=== PATIENT | female | born 1945 | race Two or more races ===

== ENCOUNTER 2018-08-31 20:52 | Emergency (ER) | payer MEDICARE, OTHER ==
[~2018-08-31] VITALS: Ht 144.8 cm; Wt 90.7 kg
[2018-08-31 20:58] VITALS: BP 157/70
[2018-08-31] MEDS ORDERED: HYDR-3164 PO (21:25)
--- NOTE | 2018-08-31 21:28 | PHYS DOC ---
Past Medical History Past Medical History: Diabetes-Type II, High Cholesterol, Hypertension Additional Past Medical Histor: Pt reports she thinks she was told she has had a TIA in the past. (ANDREW LONGORIA APRN) Past Surgical History: , Tubal ligation Additional Past Surgical Histo: Left shoulder surgery. Bilateral knee scope. (ANDREW LONGORIA APRN) Alcohol Use: Rarely Drug Use: None (ANDREW LONGORIA APRN) Adult General Chief Complaint Chief Complaint: [facility] HPI Patient is a 72 year old female] who presents with right shoulder pain. States it has progressively gotten worse over the past few days. Reports she had been h elping a family member move over the past few days and has been lifting boxes and heavy items. Reports the pain did seem to get a little worse over the past day today. States it feels just like her left shoulder when she had a rotator cuff tear on that side. States she has problems lifting her arm anteriorly and laterally. states increase in pain. Has tried tylenol but it is not helping at all. Denies paresthesias to arm, denies falling on arm, denies trauma to arm. (ANDREW LONGORIA APRN) Review of Systems Review of Systems Constitutional: Denies fever or chills [] Eyes: Denies change in visual acuity, redness, or eye pain [] HENT: Denies nasal congestion or sore throat [] Respiratory: Denies cough or shortness of breath [] Cardiovascular: No additional information not addressed in HPI [] GI: Denies abdominal pain, nausea, vomiting, bloody stools or diarrhea [] : Denies dysuria or hematuria [] Musculoskeletal: Denies back pain, reports right shoulder pain[] Integument: Denies rash or skin lesions [] Neurologic: Denies headache, focal weakness or sensory changes [] Endocrine: Denies polyuria or polydipsia [] All other systems were reviewed and found to be within normal limits, except as documented in this note. (ANDREW LONGORIA APRN) Current Medications Current Medications Current Medications Medications (Trade) Dose Ordered Sig/Anselmo Start Time Stop Time Status Last Admin Dose Admin Acetaminophen/ Hydrocodone Bitart (Lortab 5/325) 1 tab 1X ONCE 08/31/18 21:45 08/31/18 21:46 DC 08/31/18 21:45 1 TAB (SUSANNE WARD MD) Allergies Allergies Allergies Coded Allergies Type Severity Reaction Last Updated Verified No Known Drug Allergies 08/19/15 No (SUSANNE WARD MD) Physical Exam Physical Exam Constitutional: Well developed, well nourished, no acute distress, non-toxic appearance. [] HENT: Normocephalic, atraumatic, bilateral external ears normal, oropharynx moist, no oral exudates, nose normal. [] Eyes: PERRLA, EOMI, conjunctiva normal, no discharge. [] Neck: Normal range of motion, no tenderness, supple, no stridor. [] Cardiovascular:Heart rate regular rhythm, no murmur [] Lungs & Thorax: Bilateral breath sounds clear to auscultation [] Abdomen: Bowel sounds normal, soft, no tenderness, no masses, no pulsatile masses. [] Skin: Warm, dry, no erythema, no rash. [] Back: No tenderness, no CVA tenderness. [] Extremities: No tenderness, no cyanosis, no clubbing, ROM decreased, no edema. Able to raise arm approx 90 degrees with assistance, unassisted with severe increase in pain, Able to raise arm actively laterally to 90 degrees, passively slightly higher. Increased discomfort anteriorly to shoulder on movement forward of arm. Circulation intact. no deformity palpated. no point tenderness while not moving arm. [] Neurologic: Alert and oriented X 3, normal motor function, normal sensory function, no focal deficits noted. [] Psychologic: Affect normal, judgement normal, mood normal. [] (ANDREW LONGORIA APRN) Current Patient Data Vital Signs Vital Signs Date Time Temp Pulse Resp B/P (MAP) Pulse Ox O2 Delivery O2 Flow Rate FiO2 08/31/18 21:45 18 96 Room Air 08/31/18 20:58 97.5 74 157/70 (99) 97.5 (SUSANNE WARD MD) EKG EKG [] (ANDREW LONGORIA APRN) Radiology/Procedures Radiology/Procedures [] (ANDREW LONGORIA APRN) Course & Med Decision Making Course & Med Decision Making Pertinent Labs and Imaging studies reviewed. (See chart for details) [Discussed findings, discussed X ray with patient, patient reporting she thinks it's her rotator cuff again. Discussed use of sling Discussed use of pain medications Discussed importance of follow up with Ortho] (ANDREW LONGORIA APRN) Course & Med Decision Making Staff Physician Addendum: I was working in the ER during the course of this patient's visit. I was available for consultation as needed, but I was not directly involved in the care of this patient. (SUSANNE WARD MD) Dragon Disclaimer Dragon Disclaimer This electronic medical record was generated, in whole or in part, using a voice recognition dictation system. (ANDREW LONGORIA APRN) Departure Departure Impression: Primary Impression: Shoulder pain, right Additional Impression: Right shoulder strain Disposition: HOME, SELF-CARE Referrals: CELSA AVENDANO MD (PCP) CATRACHO SALINAS MD Patient Instructions: Rotator Cuff Injury, Shoulder Pain, [id number] Additional Instructions: As we discussed, follow up with your orthopedic surgeon, perhaps whoever did your left shoulder Keep your arm in a sling when you are up and moving around for the next week. Througout the day, take your arm out and exercise it some, but do not over-do it Stop lifting heavy boxes and helping your family move. Let a younger family member do it. Scripts Hydrocodone/Apap 5-325 (NORCO 5-325 TABLET) 1 Each Tablet 1 TAB PO PRN Q6HRS PRN for PAIN for 3 Days, #12 TAB 0 Refills Prov: ANDREW LONGORIA APRN 08/31/18 Problem Qualifiers Primary Impression: Shoulder pain, right Chronicity: acute Qualified Codes: M25.511 - Pain in right shoulder Additional Impression: Right shoulder strain Encounter type: initial encounter Qualified Codes: S46.911A - Strain of unspecified muscle, fascia and tendon at shoulder and upper arm level, right arm, initial encounter ANDREW LONGORIA APRN Aug 31, 2018 21:28 SUSANNE WARD MD Sep 06, 2018 20:30
[2018-08-31] MEDS ORDERED: HYDROcodone/APAP 5/325MG 1 TAB TABLET PO ONE (21:45)
== END 2018-08-31 21:48 | disposition home or self-care (01) ==
LOC: ER 20:52
DX: S46.911A Strain of unspecified muscle, fascia and tendon at shoulder and upper arm level, right arm, initial encounter (principal); E11.9 Type 2 diabetes mellitus without complications; I10 Essential (primary) hypertension; E78.00 Pure hypercholesterolemia, unspecified; Z86.73 Personal history of transient ischemic attack (TIA), and cerebral infarction without residual deficits; X50.9XXA Other and unspecified overexertion or strenuous movements or postures, initial encounter; Y93.89 Activity, other specified; Y92.89 Other specified places as the place of occurrence of the external cause; Y99.8 Other external cause status
CPT/HCPCS: 99283

== ENCOUNTER 2019-11-24 15:23 | Inpatient (IN) | payer MEDICARE, OTHER ==
[~2019-11-24] VITALS: Ht 144.8 cm; Wt 90.0 kg
[~2019-11-24 15:23] MED LIST: HYDR-3164 PO
--- NOTE | 2019-11-24 16:08 | PHYS DOC ---
Past Medical History Past Medical History: Diabetes-Type II, High Cholesterol, Hypertension Additional Past Medical Histor: Pt reports she thinks she was told she has had a TIA in the past. (ROMINA SENA APRN) Past Surgical History: , Tubal ligation Additional Past Surgical Histo: Left shoulder surgery. Bilateral knee scope. (ROMINA SENA APRN) Smoking Status: Never Smoker Alcohol Use: Rarely Drug Use: None (ROMINA SENA APRN) General Adult EDM: Chief Complaint: LOWER EXT PAIN HPI: HPI: Patient is a 74 year old female who presents with yesterday began having dorsal right foot pain that was sharp and aching and continuous throughout the day and all night the pain worsened to the whole foot and up the leg to the knee. Upon examination patient is tender to the calf and the whole foot but there is no swelling. Skin is pink warm and dry. Pedal pulses present. Cap refills less than 2 seconds. Patient does have diabetes but states that she does not have any neuropathy denies numbness and tingling anywhere. She states that the pain worsens when she puts pressure on the extremity or with movement. She states she has not taken any pain medicine. Patient's other history is hypertension, high cholesterol, , tubal ligation. She rates her pain a 10 out of 10. (ROMINA SENA APRN) Review of Systems: Review of Systems: Constitutional: Denies fever or chills. [] Eyes: Denies change in visual acuity. [] HENT: Denies nasal congestion or sore throat. [] Respiratory: Denies cough. shortness of breath due to pain and holding her breath due to pain. [] Cardiovascular: Denies chest pain. Left lower leg 1+ edema. [] GI: Denies abdominal pain, nausea, vomiting, bloody stools or diarrhea. [] : Denies dysuria. [] Musculoskeletal: Denies back pain. Right lower extremity joint pain. Left lower extremity does hurt also but not as bad as right. [] Integument: Denies rash. [] Neurologic: Denies headache, focal weakness or sensory changes. [] Endocrine: Denies polyuria or polydipsia. [] Lymphatic: Denies swollen glands. [] Psychiatric: Denies depression or anxiety. [] (ROMINA SNEA APRN) Heart Score: Risk Factors: Risk Factors: DM, Current or recent (<one month) smoker, HTN, HLP, family history of CAD, obesity. Risk Scores: Score 0 - 3: 2.5% MACE over next 6 weeks - Discharge Home Score 4 - 6: 20.3% MACE over next 6 weeks - Admit for Clinical Observation Score 7 - 10: 72.7% MACE over next 6 weeks - Early Invasive Strategies (ROMINA SENA APRN) Allergies: Allergies: Allergies Coded Allergies Type Severity Reaction Last Updated Verified No Known Drug Allergies 08/19/15 No (ROMINA SENA APRN) Physical Exam: PE: Constitutional: Well developed, well nourished, no acute distress, non-toxic appearance. [] HENT: Normocephalic, atraumatic, bilateral external ears normal, oropharynx moist, no oral exudates, nose normal. [] Eyes: PERRLA, EOMI, conjunctiva normal, no discharge. [] Neck: Normal range of motion, no tenderness, supple, no stridor. [] Cardiovascular:Heart rate regular rhythm, no murmur [] Lungs & Thorax: Bilateral breath sounds clear to auscultation [] Abdomen: Bowel sounds normal, soft, no tenderness, no masses, no pulsatile masses. [] Skin: Warm, dry, no erythema, no rash. [] Back: No tenderness, no CVA tenderness. [] Extremities: Right lower extremity from calf down through foot and left foot tenderness, no cyanosis, no clubbing, ROM intact, left lower extremity 1+ edema. [] Neurologic: Alert and oriented X 3, normal motor function, normal sensory function, no focal deficits noted. [] Psychologic: Affect normal, judgement normal, mood normal. [] (ROMINA SENA APRN) EKG: EKG: [] (ROMINA SENA APRN) Radiology/Procedures: Radiology/Procedures: [] Impression: [facility] [address] [place] [address] IMAGING REPORT Signed PATIENT: CHRIS BLACKWELL ACCOUNT: [id number] : 1945 LOCATION: ER AGE: 74 SEX: F EXAM STATUS: REG ER ORD. PHYSICIAN: ROMINA SENA APRN REASON: pain PROCEDURE: VENOUS LOWER EXT BILATERAL Exam: Bilateral lower extremity venous duplex study INDICATION: Leg swelling TECHNIQUE: Using a combination of real-time ultrasound imaging and color-flow and pulse Doppler imaging techniques along with graded compression and augmentation, duplex evaluation of the deep venous systems of bilateral lower extremity was performed. Multiple images were obtained. Findings: There is no sonographic evidence for deep venous thrombosis involving the visualized deep venous structures of the bilateral lower extremity. IMPRESSION: No acute DVT in the bilateral lower extremities. Electronically signed by: Keeley Rdz MD (11/24/2019 5:14 PM) [id number] DICTATED and SIGNED BY: KEELEY RDZ MD DATE: 11/24/19 1714 [facility] [address] [place], [place] [id number] IMAGING REPORT Signed PATIENT: CHRIS BLACKWELL ACCOUNT: [id number] : 1945 LOCATION: ER AGE: 74 SEX: F EXAM STATUS: PRE ER ORD. PHYSICIAN: ROMINA SENA APRN REASON: Swelling and pain PROCEDURE: FOOT RIGHT 3V FOOT RIGHT 3V 11/24/2019 3:58 PM INDICATION: Swelling and pain COMPARISON: None available. TECHNIQUE: 3 views the right foot are provided. FINDINGS/ IMPRESSION: There is no acute fracture or dislocation. Joint spaces are maintained. Bone mineralization is within normal limits. Regional soft tissues are within normal limits. There is no soft tissue gas or osseous erosion. No radiopaque foreign body. Plantar calcaneal enthesophyte noted. Electronically signed by: Stevie Cantrell MD (11/24/2019 4:23 PM) [facility] DICTATED and SIGNED BY: STEVIE CANTRELL MD DATE: 11/24/19 1623 [facility] [address] [facility] [place] [id number] IMAGING REPORT Signed PATIENT: CHRIS BLACKWELL ACCOUNT: [id number] : 1945 LOCATION: [address] [place] [address] AGE: 74 SEX: F EXAM STATUS: ADM IN ORD. PHYSICIAN: ROMINA SENA APRN REASON: pain PROCEDURE: DUPLEX LOWER EXTREMITY BILAT Bilateral lower extremity arterial Doppler: Reason for examination: Right leg pain for 2 days. The lower extremity arterial systems were evaluated from the common femoral arteries distally to the dorsalis pedis arteries with grayscale imaging, color-flow imaging and spectral analysis. There is some mild plaque without evidence of a significant stenosis seen in the lower extremities bilaterally. There are normal triphasic waveforms throughout the right lower extremity and from the common femoral artery to the posterior tibial artery proximally in the left lower extremity with biphasic wave in the distal left lower extremity. Flow velocities are normal except for some elevation of flow velocity at the right dorsalis pedis artery which may reflect a focal stenosis. Flow velocities are as follows (in centimeters per second): Right Left Common femoral artery 167.2 177.7 The femoral artery 72.3 101 Superficial femoral artery proximal 174.8 160.9 Superficial femoral artery mid 182.5 124.1 Superficial femoral artery distally 120.3 126.4 Popliteal artery 155.5 100 Posterior tibial artery proximal 109.2 76.8 Posterior tibial artery distally 104.8 77.3 Peroneal artery 66.5 43 Anterior tibial artery 37.9 68.4 Dorsalis pedis artery 165.8 57.8 IMPRESSION: Triphasic waveforms throughout the right lower extremity with elevation of the flow velocities in the right dorsalis pedis artery which may reflect a focal stenosis. Triphasic waveform from the left common femoral artery to the posterior tibial artery proximally but biphasic waveform distally but no site of a hemodynamically significant stenosis. Electronically signed by: Mehdi Silverman MD (11/24/2019 7:38 PM) [facility] DICTATED and SIGNED BY: MEHDI SILVERMAN MD DATE: 11/24/191937 (ROMINA SENA APRN) Course & Med Decision Making: Course & Med Decision Making Pertinent Labs and Imaging studies reviewed. (See chart for details) See HPI. Patient unable to ambulate because she cannot put pressure on the extremity. Speaks in full clear sentences. Skin pink warm and dry. Patient does seem to have more swelling in the left lower leg compared to the right lower leg. When I touch the left foot she also jumped and stated that that side hurt also but not as much as the right foot does. Pedal pulse again present. Skin again pink warm and dry cap refill less than 2 seconds. Because of this I have ordered bilateral lower leg ultrasounds of those extremities. Patient denies chest pain, headache, dizziness, focal weakness, numbness or tingling, abdominal pain, nausea, vomiting, diarrhea, fever. Patient states at times she will feel short of breath but is because of the pain and she is holding her breath. [] (ROMINA SENA APRN) Dragon Disclaimer: Dragon Disclaimer: This electronic medical record was generated, in whole or in part, using a voice recognition dictation system. (ROMINA SENA APRN) Departure Departure Impression: Primary Impression: Unable to ambulate Additional Impression: Intractable pain Disposition: ADMITTED INPATIENT Admitting Physician: Celsa Garvey (ROMINA SENA APRN) Condition: STABLE Referrals: CELSA GARVEY MD (PCP) Justicifation of Admission Dx: Justifications for Admission: Justification of Admission Dx: Yes Comments: intractable leg pain (ORMINA SENA APRN) Attending Signature Attending Signature I have reviewed the PA/ORTHOPEDIC DENTIST's note and plan of care. I was available for consultation as needed during the patient's visit in the emergency department. I agree with the clinical impression, plan, and disposition. (POLLY SAMUELS DO) ROMINA SENA APRN Nov 24, 2019 16:08 POLLY SAMUELS DO Nov 25, 2019 07:08
[2019-11-24] MEDS ORDERED: fentaNYL PF VIAL 100 MCG/2 ML VIAL IVP ONE (16:15)
[2019-11-24 16:24] LABS: BASO # 0.1 x10^3/uL (0.0-0.2); BASO % 1 % (0-3); EOS # 0.1 x10^3/uL (0.0-0.7); EOS % 1 % (0-3); HEMOGLOBIN 12.4 g/dL (12.0-15.5); LYMPH % 12 % (24-48); MEAN CORPUSCULAR HEMOGLOBIN 32 pg (25-35); MEAN CORPUSCULAR HGB CONC 34 g/dL (31-37); MEAN CORPUSCULAR VOLUME 95 fL (79-100); MONO # 0.7 x10^3/uL (0.0-1.1); MONO % 9 % (0-9); NEUT % 76 % (31-73); PLATELET COUNT 208 x10^3/uL (140-400); RED BLOOD COUNT 3.91 x10^6/uL (3.50-5.40); RED CELL DISTRIBUTION WIDTH 13.8 % (11.5-14.5); WHITE BLOOD COUNT 7.9 x10^3/uL (4.0-11.0)
--- NOTE | 2019-11-24 16:26 | RAD ---
FOOT RIGHT 3V 11/24/2019 3:58 PM INDICATION: Swelling and pain COMPARISON: None available. TECHNIQUE: 3 views the right foot are provided. FINDINGS/ IMPRESSION: There is no acute fracture or dislocation. Joint spaces are maintained. Bone mineralization is within normal limits. Regional soft tissues are within normal limits. There is no soft tissue gas or osseous erosion. No radiopaque foreign body. Plantar calcaneal enthesophyte noted. Electronically signed by: Soni Gilmore MD (11/24/2019 4:23 PM) CHEY
[2019-11-24 16:34] LABS: PROTHROMBIN TIME PATIENT 13.7 SEC (11.7-14.0)
[2019-11-24 16:36] LABS: CALCIUM 8.4 mg/dL (8.5-10.1); CREATININE 0.8 mg/dL (0.6-1.0); GFR 70.3; POTASSIUM 3.7 mmol/L (3.5-5.1)
[2019-11-24 16:48] LABS: ALBUMIN 3.5 g/dL (3.4-5.0); C-REACTIVE PROTEIN 5.6 mg/L (0-3.3); TOTAL BILIRUBIN 0.5 mg/dL (0.2-1.0); URIC ACID 4.2 mg/dL (2.6-6.0)
--- NOTE | 2019-11-24 17:18 | RAD ---
Exam: Bilateral lower extremity venous duplex study INDICATION: Leg swelling TECHNIQUE: Using a combination of real-time ultrasound imaging and color-flow and pulse Doppler imaging techniques along with graded compression and augmentation, duplex evaluation of the deep venous systems of bilateral lower extremity was performed. Multiple images were obtained. Findings: There is no sonographic evidence for deep venous thrombosis involving the visualized deep venous structures of the bilateral lower extremity. IMPRESSION: No acute DVT in the bilateral lower extremities. Electronically signed by: Keeley Landa MD (11/24/2019 5:14 PM) [id number]
[2019-11-24] MEDS ORDERED: ONDANSETRON PF 4 MG/2 ML VIAL. IV PRN (18:45)
[2019-11-24] MEDS: fentaNYL PF VIAL 100 MCG/2 ML VIAL IV PRN ×3 (18:52→23:23)
--- NOTE | 2019-11-24 19:41 | RAD ---
Bilateral lower extremity arterial Doppler: Reason for examination: Right leg pain for 2 days. The lower extremity arterial systems were evaluated from the common femoral arteries distally to the dorsalis pedis arteries with grayscale imaging, color-flow imaging and spectral analysis. There is some mild plaque without evidence of a significant stenosis seen in the lower extremities bilaterally. There are normal triphasic waveforms throughout the right lower extremity and from the common femoral artery to the posterior tibial artery proximally in the left lower extremity with biphasic wave in the distal left lower extremity. Flow velocities are normal except for some elevation of flow velocity at the right dorsalis pedis artery which may reflect a focal stenosis. Flow velocities are as follows (in centimeters per second): Right Left Common femoral artery 167.2 177.7 The femoral artery 72.3 101 Superficial femoral artery proximal 174.8 160.9 Superficial femoral artery mid 182.5 124.1 Superficial femoral artery distally 120.3 126.4 Popliteal artery 155.5 100 Posterior tibial artery proximal 109.2 76.8 Posterior tibial artery distally 104.8 77.3 Peroneal artery 66.5 43 Anterior tibial artery 37.9 68.4 Dorsalis pedis artery 165.8 57.8 IMPRESSION: Triphasic waveforms throughout the right lower extremity with elevation of the flow velocities in the right dorsalis pedis artery which may reflect a focal stenosis. Triphasic waveform from the left common femoral artery to the posterior tibial artery proximally but biphasic waveform distally but no site of a hemodynamically significant stenosis. Electronically signed by: Adriana Sapp MD (11/24/2019 7:38 PM) EDMAR
--- NOTE | 2019-11-24 20:30 | NUR ---
The patient, CHRIS BLACKWELL, 74 y/o, F admitted by CELSA AVENDANO MD, was given written information regarding hospital policies, unit procedures and contact persons. RN received report from Sophy BORJA in the ED at 1936, patient was transported from the ED to room 428 via gurney at 2030. RN performed a head to toe assessment at that time, VSS, afebrile, and pain rated a 10/10 at that time. Bed is in lowest locked position and call light is within reach. Valuables were checked and left in the room with the patient. RN will continue to monitor patient closely.
--- NOTE | 2019-11-24 20:50 | NUR ---
Patients glucose was 54, patient given a sandwich, chips and juice. Glucose was rechecked at 2150 and it came up to 120. RN will continue to monitor closely.
[2019-11-24 21:00] VITALS: BP 100/35
[2019-11-24] MEDS ORDERED: DEXTROSE 50% 25 GM / 50ML DISP.SYRIN. IV ONE (21:30)
[2019-11-24 23:00] VITALS: BP 122/55
[2019-11-25] MEDS ORDERED: BUPR300T92 PO (01:24)
[2019-11-25] MEDS ORDERED: ASPI-886 PO (01:24)
[2019-11-25] MEDS ORDERED: ALPR1TAB6 PO (01:24)
[2019-11-25] MEDS ORDERED: PIOG30TA41 PO (01:24)
[2019-11-25] MEDS ORDERED: ALPR0.5T6 PO (01:24)
[2019-11-25] MEDS ORDERED: CRESTOR5 MG PO (01:24)
[2019-11-25] MEDS ORDERED: DULO60CA6 PO (01:24)
[2019-11-25] MEDS ORDERED: GLIM4TAB8 PO (01:24)
[2019-11-25] MEDS ORDERED: LISI-334 PO (01:24)
[2019-11-25 03:00] VITALS: BP 124/60
[2019-11-25] MEDS: fentaNYL PF VIAL 100 MCG/2 ML VIAL IV PRN ×3 (05:35→18:18)
--- NOTE | 2019-11-25 06:00 | NUR ---
Patients glucose was 60, patient given apple juices and crackers. Glucose rechecked at 0630 and it came up to 102. RN will continue to monitor closely.
[2019-11-25] MEDS ORDERED: DEXTROSE 50% 25 GM / 50ML DISP.SYRIN. IV ONE (06:15)
[2019-11-25 07:00] VITALS: BP 139/56
[2019-11-25] MEDS ORDERED: LIDOCAINE 1% PF 2 ML VIAL. INJ ONE (08:30)
--- NOTE | 2019-11-25 09:40 | CONS ---
DATE OF CONSULTATION: 11/25/2019 REQUESTING PHYSICIAN: Celsa Garvey MD, [facility]. CHIEF COMPLAINT: Right foot pain. HISTORY OF PRESENT ILLNESS: The patient is a 74-year-old female indicates a couple of day history of right foot pain that she says is atraumatic in onset, but just continuous throbbing type pain that she feels mainly on the top of her foot. She does feel it somewhat up the back of her leg to her knee as well. She really denies again any traumatic episode or swelling and really no specific numbness or tingling. It is more a burning, throbbing, constant pain and it is worse when she moves her leg or puts pressure on it to try and weightbear. PAST MEDICAL HISTORY: Significant for type 2 diabetes, hypertension, hypercholesterolemia, questionable history of transient ischemic attack in the past and on further questioning, she does indicate an episode of gout previously in her toe remotely. PAST SURGICAL HISTORY: Left shoulder surgery, remote arthroscopies of both knees, tubal ligation and . SOCIAL HISTORY: Denies smoking or drug use. Rare use of alcohol. FAMILY HISTORY: Noncontributory. ALLERGIES: She has no known drug allergies. MEDICATIONS: List is reviewed. REVIEW OF SYSTEMS: She again denies no traumatic onset. Really no fever or chills. No other joint pain aside from around the foot and ankle area and some radiation up to the right knee, difficulty bearing weight. Denies any focal weakness, numbness, tingling. She has no chest pain, shortness of breath, recent febrile illness. No neck or back pain or other constitutional symptoms. Remainder of her 14-point review of systems is negative. PHYSICAL EXAMINATION: EXTREMITIES: She has good motion and normal stability of bilateral shoulder, elbow and wrist. Normal motion of the neck with a negative Spurling sign. She is very tender in the leg. It is hard to assess if she has any straight leg raise findings, but certainly nothing overt. She has very limited range of motion that is painful of her right ankle. I do not notice a significant effusion. Right knee is similarly tender to movement. She is very tender over the posterior aspect of the calf as well and as I bring her up into dorsiflexion, very painful in the left calf up to her knee. She is also globally and diffusely tender over the dorsal aspect of her right foot compared to a normal examination of the left foot, left knee and bilateral hips. No tenderness over the trochanteric bursa at all. Distal pulses are palpable. IMAGING: X-rays of the right foot showed no evidence of any fracture, but joint spaces are well maintained and soft tissues look normal. Venous duplex of bilateral lower extremities shows no evidence of DVT and arterial Doppler appears to show triphasic waveforms throughout. Laboratory exam shows no evidence of elevated white count. There is not a uric acid measurement noted. She did have a low blood sugar episode of 54 and was fed some crackers and then such this morning as a result of that and blood sugars are now 130 range. IMPRESSION: 1. Diffuse right foot, ankle and leg pain up to her right knee. 2. No evidence of elevated white count. 3. Remote history of gout in one of her toes. TREATMENT PLAN: I do not think there is really much evidence of a septic joint given the diffuse nature of her pain; however, it is certainly possible, particularly the right ankle, perhaps more likely would be a gout attack. I would like to start initially with uric acid level and perhaps aspiration of her right ankle joint. She is going to be kept n.p.o. in the interim to keep her options open if any surgical intervention would be necessary in the case of perhaps a septic right ankle joint. CATRACHO SALINAS MD DR: GERSON/lópez JOB#: [id number] / [id number] CELSA Kennedy MD
[2019-11-25 11:00] VITALS: BP 143/74
[2019-11-25] MEDS ORDERED: ALPRAZolam 0.5 MG TABLET PO PRN (11:30)
--- NOTE | 2019-11-25 11:30 | PDOC ---
Provider Note Date of Service: DATE: 11/25/19 TIME: 11:28 Provider Note [id number] Justifications for Admission Other Justification SANJAY SCOTT MD Nov 25, 2019 11:30
--- NOTE | 2019-11-25 12:27 | HP ---
ADMIT DATE: CHIEF COMPLAINT: Right knee and ankle pain. HISTORY OF PRESENT ILLNESS: This is a 74-year-old female, patient of Dr. aCtes who has diabetes, who came in with 2 days of fairly severe pain in her right knee and ankle both. She has had no injury that caused her pain and there is no sciatic component. X-ray was clear. Laboratory study test unremarkable. Uric acid was only 4.6. She says she has had "gout" once prior in the great toe, but nothing for many years. PAST MEDICAL HISTORY: Diabetes. MEDICATIONS: She takes multiple meds. ALLERGIES: No allergies to drugs. No other medical problems. SOCIAL HISTORY: She is , nonsmoker, nondrinker. FAMILY HISTORY: Unremarkable. No obvious family history of gout or pseudogout. REVIEW OF SYSTEMS: No other complaints. OBJECTIVE: ENT: Unremarkable. NECK: No masses, nodes or bruits. LUNGS: Clear. CARDIOVASCULAR: Regular rate. ABDOMEN: Obese, soft, benign and nontender. EXTREMITIES: Both the right knee and right ankle are warm and very tender and have at least a 2+ effusion. The right dorsal forefoot is somewhat tender as well, but the MTP joints and left leg are unremarkable. She has good pedal pulses bilaterally. NEUROLOGIC: Physiologic. ASSESSMENT: Suspect this is acute pseudogout of the right knee and ankle. PLAN: We will start oral prednisone for now. Hold diabetic meds given borderline hypoglycemia. We will consider right knee and/or ankle steroid injection tomorrow if she is not showing reasonable improvement. SANJAY SCOTT MD DR: NILESH/lópez JOB#: [id number] / [id number]
[2019-11-25] MEDS ORDERED: BUPIVACAINE MPF 0.25% 10 ML VIAL. IJ ONE (12:30)
[2019-11-25] MEDS ORDERED: methylPREDNISolone ACETATE 80 MG/ML VIAL. INT ART ONE (12:30)
[2019-11-25] MEDS: ASPIRIN ENTERIC COATED 81 MG TABLET.DR. PO SCH (12:45)
[2019-11-25] MEDS: predniSONE 20 MG TABLET PO SCH (12:46)
[2019-11-25] MEDS: buPROPion XL 150 MG TAB.ER.24H. PO SCH (12:46)
[2019-11-25 15:00] VITALS: BP 137/63
[2019-11-25 19:00] VITALS: BP 126/59
[2019-11-25] MEDS: LISINOPRIL 20 MG TABLET PO SCH (20:40)
[2019-11-25] MEDS: DULoxetine HCL 30 MG CAPSULE.DR PO SCH (20:41)
[2019-11-25] MEDS: ATORVASTATIN CALCIUM 40 MG TABLET. PO SCH (20:51)
[2019-11-25 23:00] VITALS: BP 116/43
--- NOTE | 2019-11-26 02:20 | NUR ---
I have assessed and agree with [employer] accountant of pt.
[2019-11-26 03:00] VITALS: BP 113/53
[2019-11-26 07:00] VITALS: BP 120/62
[2019-11-26] MEDS: ASPIRIN ENTERIC COATED 81 MG TABLET.DR. PO SCH (07:32)
[2019-11-26] MEDS: predniSONE 20 MG TABLET PO SCH (07:33)
[2019-11-26] MEDS: buPROPion XL 150 MG TAB.ER.24H. PO SCH (07:33)
[2019-11-26] MEDS ORDERED: HYDROcodone/APAP 5/325MG 1 TAB TABLET PO PRN (09:45)
--- NOTE | 2019-11-26 09:54 | PDOC ---
Provider Note Date of Service: DATE: 11/26/19 TIME: 09:52 Provider Note R knee scale reclamation tender but R ankle better already- R knee injected depomedrol 40 mg, marcaine 2 ml, 25 g, christiano well from alejo lockhart, [place] approach- will xr knee, cont po pred, likley home in am Justifications for Admission Other Justification SANJAY SCOTT MD Nov 26, 2019 09:54
[2019-11-26] MEDS ORDERED: methylPREDNISolone ACETATE 40 MG/ML VIAL. ONE (10:00)
[2019-11-26] MEDS ORDERED: BUPIVACAINE MPF 0.25% 10 ML VIAL. ONE (10:00)
[2019-11-26 11:00] VITALS: BP 117/54
--- NOTE | 2019-11-26 11:34 | RAD ---
ANKLE RIGHT 2V, KNEE RIGHT 2V 11/26/2019 12:00 AM INDICATION: Synovitis COMPARISON: None available. TECHNIQUE: 2 views of the right ankle and 3 views of the right knee are provided. FINDINGS/ IMPRESSION: 1. Right ankle: Tibial plafond and talar dome are intact. Ankle mortise is congruent. No acute fracture or dislocation. Plantar calcaneal enthesophyte noted. 2. Right knee: There is a moderate to large pleural effusion. Ossific body is noted in the posterior joint space measuring 9 mm. There is moderate medial and mild lateral femorotibial joint space narrowing with marginal osteophytosis compatible with moderate to advanced osteoarthrosis. Moderate patellofemoral joint space narrowing with patellofemoral osteophytosis compatible with moderate osteoporosis. Mineralization along the lateral femorotibial joint space could be associated with chondrocalcinosis. No acute fracture or soft tissue abnormality. Electronically signed by: Soni Gilmore MD (11/26/2019 11:31 AM) LADI
--- NOTE | 2019-11-26 13:54 | NUR ---
Both the depomedrol and bupivocaine were given by injection to joints this am by Dr Venegas
--- NOTE | 2019-11-26 13:56 | NUR ---
Dr Venegas is aware of patient's high blood sugars while on steroids, but does not wish to add insulin at this time
[2019-11-26 15:00] VITALS: BP 121/71
[2019-11-26 19:00] VITALS: BP 125/67
[2019-11-26] MEDS ORDERED: ACETAMINOPHEN 325 MG TABLET. PO PRN (19:45)
[2019-11-26] MEDS: LISINOPRIL 20 MG TABLET PO SCH (20:13)
[2019-11-26] MEDS: DULoxetine HCL 30 MG CAPSULE.DR PO SCH (20:13)
[2019-11-26] MEDS: ATORVASTATIN CALCIUM 40 MG TABLET. PO SCH (20:14)
[2019-11-26 23:00] VITALS: BP 138/71
[2019-11-27 03:00] VITALS: BP 95/51
[2019-11-27 07:00] VITALS: BP 136/61
[2019-11-27] MEDS: ASPIRIN ENTERIC COATED 81 MG TABLET.DR. PO SCH (08:31)
[2019-11-27] MEDS: predniSONE 20 MG TABLET PO SCH (08:31)
[2019-11-27] MEDS: buPROPion XL 150 MG TAB.ER.24H. PO SCH (08:32)
--- NOTE | 2019-11-27 10:17 | PDOC ---
DATE OF SERVICE: DATE: 11/27/19 TIME: 10:14 GENERAL General: vss and afebrile. immensely more comfortable with steroids and cortisone shot in knee. right knee still some swollen, chest clear, heart regular, and abdomen benign. can stand to pivot per patient but still can't walk and will get therapy involved. sugars high with steroids. VITAL SIGNS/I&O Vital Signs/I&O: Vital Signs Date Time Temp Pulse Resp B/P (MAP) Pulse Ox O2 Delivery O2 Flow Rate FiO2 11/27/19 07:00 97.8 80 16 136/61 (86) 96 Room Air 97.8 I & O 11/26/19 11/26/19 11/27/19 15:00 23:00 07:00 Intake Total 150 ml 100 ml Output Total 300 ml Balance 150 ml -200 ml ALLERGIES Allergies: Allergies Coded Allergies Type Severity Reaction Last Updated Verified No Known Drug Allergies 08/19/15 No LAB Lab: Laboratory Tests Test 11/26/19 11:10 11/26/19 16:18 11/26/19 20:14 11/27/19 07:19 Glucose (Fingerstick) 240 mg/dL (70-99) H 336 mg/dL (70-99) H 346 mg/dL (70-99) H 178 mg/dL (70-99) H Justifications for Admission Other Justification CELSA AVENDANO MD Nov 27, 2019 10:17
[2019-11-27 11:12] VITALS: BP 145/41
[2019-11-27 15:20] VITALS: BP 103/61
[2019-11-27 19:40] VITALS: BP 119/61
[2019-11-27] MEDS: ATORVASTATIN CALCIUM 40 MG TABLET. PO SCH (21:07)
[2019-11-27] MEDS: LISINOPRIL 20 MG TABLET PO SCH (21:07)
[2019-11-27] MEDS: DULoxetine HCL 30 MG CAPSULE.DR PO SCH (21:10)
[2019-11-27] MEDS ORDERED: INSULIN LISPRO 300 UNITS/3 ML VIAL. SQ ONE (21:45)
[2019-11-27 23:00] VITALS: BP 138/60
[2019-11-28 03:00] VITALS: BP 126/48
[2019-11-28 07:00] VITALS: BP 140/47
--- NOTE | 2019-11-28 07:54 | PDOC ---
DATE OF SERVICE: DATE: 11/28/19 TIME: 07:52 GENERAL General: vss and afebrile. sugars remain elevated with steroids and prn insulin use. exam stable. therapy to make determination today as to best dc venue. patient thinks she will go home with daughter. overall doing much better with pain bearable at this point. VITAL SIGNS/I&O Vital Signs/I&O: Vital Signs Date Time Temp Pulse Resp B/P (MAP) Pulse Ox O2 Delivery O2 Flow Rate FiO2 11/28/19 07:00 97.9 102 18 140/47 (78) 98 Room Air 97.9 I & O 11/27/19 11/27/19 11/28/19 15:00 23:00 07:00 Intake Total 380 ml Output Total 200 ml 200 ml Balance -200 ml 180 ml ALLERGIES Allergies: Allergies Coded Allergies Type Severity Reaction Last Updated Verified No Known Drug Allergies 08/19/15 No MEDS Medications: Current Medications Medications (Trade) Dose Ordered Sig/Anselmo Route PRN Reason Start Time Stop Time Status Last Admin Dose Admin Insulin Human Lispro (HumaLOG) 5 units 1X ONCE SQ 11/27/19 21:45 11/27/19 21:48 DC 11/27/19 22:03 LAB Lab: Laboratory Tests Test 11/27/19 11:44 11/27/19 16:27 11/27/19 20:58 11/28/19 07:29 Glucose (Fingerstick) 225 mg/dL (70-99) H 206 mg/dL (70-99) H 398 mg/dL (70-99) H 146 mg/dL (70-99) H Justifications for Admission Other Justification CELSA AVENDANO MD Nov 28, 2019 07:54
[2019-11-28] MEDS: ASPIRIN ENTERIC COATED 81 MG TABLET.DR. PO SCH (08:22)
[2019-11-28] MEDS: buPROPion XL 150 MG TAB.ER.24H. PO SCH (08:23)
[2019-11-28] MEDS: predniSONE 20 MG TABLET PO SCH (08:23)
--- NOTE | 2019-11-28 10:05 | NUR ---
SW following. Discussed with RN, pt from home with daughter. PT/OT recommending home. RN advised no SW needs, anticipate discharge home today.
[2019-11-28 11:00] VITALS: BP 126/35
[2019-11-28 15:00] VITALS: BP_SYST 127; BP_SYST 162; BP_DIAS 59; BP_DIAS 65
--- NOTE | 2019-11-28 16:38 | PDOC ---
ORTHO PROGRESS NOTES DATE: 11/28/19 TIME: 16:36 Subjective Patient states that pain is much better today with good relief. Procedure Possible gout attack with right knee injection Vitals Vital Signs Date Time Temp Pulse Resp B/P (MAP) Pulse Ox O2 Delivery O2 Flow Rate FiO2 11/28/19 15:00 98.0 76 18 162/65 (97) 94 Room Air 98.0 Labs Laboratory Tests Test 11/26/19 20:14 11/27/19 07:19 11/27/19 11:44 11/27/19 16:27 Glucose (Fingerstick) 346 mg/dL (70-99) 178 mg/dL (70-99) 225 mg/dL (70-99) 206 mg/dL (70-99) Test 11/27/19 20:58 11/28/19 07:29 11/28/19 11:41 11/28/19 16:28 Glucose (Fingerstick) 398 mg/dL (70-99) 146 mg/dL (70-99) 136 mg/dL (70-99) 294 mg/dL (70-99) Laboratory Tests Test 11/27/19 20:58 11/28/19 07:29 11/28/19 11:41 11/28/19 16:28 Glucose (Fingerstick) 398 mg/dL (70-99) 146 mg/dL (70-99) 136 mg/dL (70-99) 294 mg/dL (70-99) Notes Awake and alert and requesting to go home. Assessment and Plan Patient with a history of gout and recent gout attack with pain and swelling in right foot and right knee. Patient states injection has relieved the pain and swelling. Continue elevation and mobility. Okay to DC per Ortho standpoint if medically stable. [place] DOUGLAS PORTABLE TRACKMAN Nov 28, 2019 16:38
--- NOTE | 2019-11-29 10:36 | DS ---
DATE OF DISCHARGE: 11/28/2019 PRIMARY DIAGNOSES: Pseudogout, right knee and right ankle with inability to ambulate. ADDITIONAL DIAGNOSES: Diabetes, ____, depression, anxiety. CHIEF COMPLAINT AND HISTORY OF PRESENT ILLNESS: This 74-year-old female had progressive inability to ambulate over a day or so prior to admission because of the right knee and ankle pain. She was unable to bear weight. States even the sheets were rubbing against her leg prior to admission. She was admitted because of the inability to ambulate. LABORATORY DATA: Initial labs showing a normal white count, suggesting that this was not a septic process. Uric acid was normal. Initial blood sugars were on the low side. Hemoglobin A1c was 6. SUMMARY OF STAY: The patient was seen. Ortho was consulted. It was felt to be pseudogout in nature. She was started on prednisone with improvement in her symptomatology. Right knee was injected with cortisone during the stay. She was felt by the day of discharge to be safe to ambulate at home by therapy and dismissal was accomplished. She did have elevated blood sugars due to steroids during the stay. DISPOSITION: The patient is discharged to home. DIET: ADA diet. ACTIVITY: As tolerated. FOLLOWUP: Office in 1 week. DISCHARGE MEDICATIONS: Will be regular home meds plus a prednisone taper. CELSA AVENDANO MD DR: AMALIA/lópez JOB#: [id number] / [id number]
== END 2019-11-28 19:10 | disposition home or self-care (01) | DRG 554 ==
LOC: ER 15:23 → 4 NORTH 18:30
PROVIDERS: ADMIT Family Medicine; ATTEND Family Medicine
PROC: 3E0U33Z Introduction of Anti-inflammatory into Joints, Percutaneous Approach (ICD-10-PCS; principal; 2019-11-24)
PROC: 3E0U3BZ Introduction of Anesthetic Agent into Joints, Percutaneous Approach (ICD-10-PCS; 2019-11-24)
DX: M11.261 Other chondrocalcinosis, right knee (principal); M10.9 Gout, unspecified; I10 Essential (primary) hypertension; E11.649 Type 2 diabetes mellitus with hypoglycemia without coma; E78.00 Pure hypercholesterolemia, unspecified; F32.9 Major depressive disorder, single episode, unspecified; F41.9 Anxiety disorder, unspecified; M77.30 Calcaneal spur, unspecified foot; Z86.73 Personal history of transient ischemic attack (TIA), and cerebral infarction without residual deficits; Z79.4 Long term (current) use of insulin; Z98.51 Tubal ligation status
CPT/HCPCS: 36415; 73560; 73600; 73630; 80053; 82962; 83036; 84550; 85025; 85610; 86140; 93925; 93970; 96374; 99285; J1030; J1815; J3010; J3490; J7512; 97116-GP; 97535-GO; G0378

== ENCOUNTER 2020-03-21 20:35 | Inpatient (IN) | payer MEDICARE, OTHER ==
[~2020-03-21] VITALS: Ht 144.8 cm; Wt 92.5 kg
[~2020-03-21 20:35] MED LIST changes: +ALPR0.5T6 PO; +ALPR1TAB6 PO; +ASPI-886 PO; +BUPR300T92 PO; +CRESTOR5 MG PO; +DULO60CA6 PO; +GLIM4TAB8 PO; +LISI20TA18 PO; +PIOG30TA41 PO
--- NOTE | 2020-03-21 21:08 | PHYS DOC ---
Past Medical History Past Medical History: Diabetes-Type II, High Cholesterol, Hypertension, TIA Additional Past Medical Histor: Pt reports she thinks she was told she has had a TIA in the past. (ROMINA SENA LITIGATION DOCKET MANAGER) Past Surgical History: , Tubal ligation Additional Past Surgical Histo: Left shoulder surgery. Bilateral knee arthroscopy. (ROMINA SENA LITIGATION DOCKET MANAGER) Smoking Status: Never Smoker Alcohol Use: Rarely Drug Use: None (ROMINA SENA LITIGATION DOCKET MANAGER) General Adult EDM: Chief Complaint: HYPOGLYCEMIA HPI: HPI: Patient is a 74 year old female who presents with chronic cough for last 3 years, blood sugars going up and down all day. EMS arrived and patient's blood sugar was 45 and they gave a 200 mL bolus of D10 and got up to 107. When EMS got there patient was unresponsive. Patient is still very lethargic complains of general weakness. Upon arrival at 2042 patient's blood sugar is down to 55. Patient does awake with feeling cold but otherwise is lethargic and sleeping. She has a history of hypertension, high cholesterol, diabetes, anxiety, tubal ligation, , TIA. (ROMINA SENA LITIGATION DOCKET MANAGER) Review of Systems: Review of Systems: Constitutional: Denies fever or chills. [] Eyes: Denies change in visual acuity. [] HENT: Denies nasal congestion or sore throat. [] Respiratory: Denies cough or shortness of breath. [] Cardiovascular: Denies chest pain or edema. [] GI: Denies abdominal pain, nausea, vomiting, bloody stools or diarrhea. [] : Denies dysuria. [] Musculoskeletal: Denies back pain or joint pain. [] Integument: Denies rash. [] Neurologic: Denies headache, focal weakness or sensory changes. + Generalized weakness [] Endocrine: Denies polyuria or polydipsia. [] Lymphatic: Denies swollen glands. [] Psychiatric: Denies depression or anxiety. + Lethargy and +altered mental status [] (ROMINA SENA LITIGATION DOCKET MANAGER) Heart Score: Risk Factors: Risk Factors: DM, Current or recent (<one month) smoker, HTN, HLP, family history of CAD, obesity. Risk Scores: Score 0 - 3: 2.5% MACE over next 6 weeks - Discharge Home Score 4 - 6: 20.3% MACE over next 6 weeks - Admit for Clinical Observation Score 7 - 10: 72.7% MACE over next 6 weeks - Early Invasive Strategies (ROMINA SENA APRN) Current Medications: Current Medications Medications (Trade) Dose Ordered Sig/Anselmo Start Time Stop Time Status Last Admin Dose Admin Dextrose (Dextrose 50%-Water Syringe) 12.5 gm PRN Q15MIN PRN 03/21/20 20:45 (ROMINA SENA APRN) Allergies: Allergies: Allergies Coded Allergies Type Severity Reaction Last Updated Verified No Known Drug Allergies 08/19/15 No (ROMINA SENA APRN) Physical Exam: PE: Constitutional: Well developed, well nourished, no acute distress, non-toxic appearance. [] HENT: Normocephalic, atraumatic, bilateral external ears normal, oropharynx moist, no oral exudates, nose normal. [] Eyes: PERRLA, EOMI, conjunctiva normal, no discharge. [] Neck: Normal range of motion, no tenderness, supple, no stridor. [] Cardiovascular:Heart rate regular rhythm, no murmur [] Lungs & Thorax: Bilateral breath sounds clear to auscultation [] Abdomen: Bowel sounds normal, soft, no tenderness, no masses, no pulsatile masses. [] Skin: Warm, dry, no erythema, no rash. [] Back: No tenderness, no CVA tenderness. [] Extremities: No tenderness, no cyanosis, no clubbing, ROM intact, no edema. [] Neurologic: Lethargy, alert and oriented X 3, normal motor function, normal sensory function, no focal deficits noted. [] Psychologic: Affect normal, judgement normal, mood normal. [] (ROMINA SENA APRN) Current Patient Data: Labs: Laboratory Tests Test 03/21/20 20:43 Glucose (Fingerstick) 55 mg/dL (70-99) L (ROMINA SENA APRN) EKG: EKand read by Dr Samuels as Sinus Rhythm and no STEMI (ROMINA SENA APRN) Radiology/Procedures: Radiology/Procedures: [] Impression: [facility] [address] [place] [address] IMAGING REPORT Signed PATIENT: CHRIS BLACKWELL ACCOUNT: [id number] : 1945 LOCATION: ER AGE: 74 SEX: F EXAM STATUS: REG ER ORD. PHYSICIAN: ROMINA SENA APRN REASON: COUGH PROCEDURE: PORTABLE CHEST 1V Exam: Chest one view INDICATION: Cough TECHNIQUE: Frontal view of the chest Comparisons: None FINDINGS: The cardiomediastinal silhouette and pulmonary vessels are within normal limits. The lung and pleural spaces are clear. IMPRESSION: No acute cardiopulmonary process. Electronically signed by: Keeley Rdz MD (03/21/2020 9:58 PM) [facility] DICTATED and SIGNED BY: KEELEY RDZ MD DATE: 03/21/20 [id number] (ROMINA SENA APRN) Course & Med Decision Making: Course & Med Decision Making Pertinent Labs and Imaging studies reviewed. (See chart for details) See HPI. Patient is given to orange juices to drink. I have ordered the hypoglycemia protocol have also ordered to 30-minute glucose checks. Patient is awake and but lethargic. EKG shows sinus rhythm and no STEMI. Patient denies chest pain, shortness of breath, nausea, vomiting, abdominal pain, back pain, urinary symptoms, headache, dizziness, lightheadedness, lack of smell, lack of taste, lack of appetite, focal weakness, numbness or tingling. She states that she did eat a couple of meals today. Glucose is rechecked afterwards she says her glucose is 38. Patient is alert and slightly sleepy but is holding a conversation answering my questions appropriately. Patient is given 1 amp of D50 through her IV. Patient states that her only symptom is that she has body aches. A D5 NS fluid bolus is ordered. Patient's blood sugar is rechecked after the amp of D50 was given and her sugar was 117. 30 minutes after that her blood sugar was rechecked and it is down to 63. Her the hypoglycemia protocol that I had ordered patient should receive another 1 amp of D50 through her IV. Chest x-ray shows no acute findings. When looking back in the patient's chart I do not see where patient is on any kind of insulin and/or any diabetic pills such as Metformin or glipizide. Patient states that she cannot remember but she is taking only pills for diabetes. I have spoken to for admission and patient is admitted to the hospital. He states he will look at her medications restart tomorrow. [] (ROMINA ESNA APRN) Dragon Disclaimer: Dragon Disclaimer: This electronic medical record was generated, in whole or in part, using a voice recognition dictation system. (ROMINA SENA APRN) Departure Departure Impression: Primary Impression: Hypoglycemia Additional Impression: Person under investigation for COVID-19 Disposition: ADMITTED INPT THIS HOSP Admitting Physician: Celsa Garvey (ROMINA SENA APRN) Condition: STABLE Referrals: CELSA GARVEY MD (PCP) Attending Signature Attending Signature I have reviewed the PA/[facility]'s note and plan of care. I was available for consultation as needed during the patient's visit in the emergency department. I agree with the clinical impression, plan, and disposition. (POLLY SAMUELS DO) ROMINA SENA APRN Mar 21, 2020 21:08 POLLY SAMUELS DO Mar 21, 2020 23:25
[2020-03-21] MEDS: DEXTROSE 50% 25 GM / 50ML DISP.SYRIN. IV PRN ×2 (21:23→22:58)
[2020-03-21] MEDS ORDERED: IV DEXTROSE 5% - 0.9 % NACL 1,000 ML IV ONE (22:00)
--- NOTE | 2020-03-21 22:00 | RAD ---
Exam: Chest one view INDICATION: Cough TECHNIQUE: Frontal view of the chest Comparisons: None FINDINGS: The cardiomediastinal silhouette and pulmonary vessels are within normal limits. The lung and pleural spaces are clear. IMPRESSION: No acute cardiopulmonary process. Electronically signed by: Keeley Landa MD (03/21/2020 9:58 PM) ADAN
[2020-03-21 22:04] LABS: BASO % 1 % (0-3); EOS % 1 % (0-3); HEMATOCRIT 36.1 % (36.0-47.0); HEMOGLOBIN 11.8 g/dL (12.0-15.5); LYMPH # 0.4 x10^3/uL (1.0-4.8); LYMPH % 10 % (24-48); MEAN CORPUSCULAR HEMOGLOBIN 31 pg (25-35); MEAN CORPUSCULAR HGB CONC 33 g/dL (31-37); MEAN CORPUSCULAR VOLUME 96 fL (79-100); MONO # 0.4 x10^3/uL (0.0-1.1); MONO % 9 % (0-9); NEUT # 3.2 x10^3/uL (1.8-7.7); NEUT % 79 % (31-73); PLATELET COUNT 172 x10^3/uL (140-400); RED BLOOD COUNT 3.76 x10^6/uL (3.50-5.40); RED CELL DISTRIBUTION WIDTH 14.6 % (11.5-14.5)
[2020-03-21 22:13] LABS: CALCIUM 8.2 mg/dL (8.5-10.1); CREATININE 0.7 mg/dL (0.6-1.0); POTASSIUM 3.4 mmol/L (3.5-5.1)
[2020-03-21 22:19] LABS: ALBUMIN 3.4 g/dL (3.4-5.0); ALBUMIN/GLOBULIN RATIO 1.1 (1.0-1.7); TOTAL BILIRUBIN 0.2 mg/dL (0.2-1.0); TOTAL PROTEIN 6.4 g/dL (6.4-8.2)
[2020-03-21] MEDS ORDERED: ACETAMINOPHEN 325 MG TABLET. PO PRN (22:30)
[2020-03-21] MEDS ORDERED: ONDANSETRON PF 4 MG/2 ML VIAL. IV PRN (22:30)
[2020-03-21] MEDS ORDERED: IV DEXTROSE 5%-LACT RINGERS 1,000 ML IV ONE (22:45)
[2020-03-21 23:17] LABS: BILIRUBIN,URINE NEGATIVE (NEG); CLARITY,URINE CLEAR; COLOR,URINE YELLOW; NITRITE,URINE POSITIVE (NEG); PH,URINE 6.5 (<5.0-8.0); PROTEIN,URINE NEGATIVE (NEG-TRACE)
[2020-03-21 23:33] LABS: RBC,URINE 0 /HPF (0-2); WBC,URINE 0 /HPF (0-4)
[2020-03-21 23:34] LABS: BACTERIA,URINE MANY /HPF (0-FEW)
[2020-03-21 23:49] VITALS: BP 189/68
[2020-03-22] VITALS (7 sets, daily range): BP systolic 135–182; BP diastolic 48–78
[2020-03-22] MEDS: DEXTROSE 50% 25 GM / 50ML DISP.SYRIN. IV PRN ×2 (00:04→02:53)
--- NOTE | 2020-03-22 00:12 | NUR ---
The patient, CHRIS BLACKWELL, 74 y/o, F admitted by CELSA AVENDANO MD, was given written information regarding hospital policies, unit procedures and contact persons. Valuables were checked and left with her.
--- NOTE | 2020-03-22 01:29 | NUR ---
Spoke with daughter about events leading up to pt coming to hospital and confirming medications. Daughter reported that on 03/21 pt woke up at 0230'mamta and son had to go get her something to eat as pt reported feeling funny. Son then called daughter. Daughter reported that pt took 2 Tylenol PM around 5 and went back to sleep. Daughter called around 1230 to check on mother. Daughter reported pt had said had not eaten but that would. Daughter got off work at 1430 and went to check on mother. Pt reported had not eaten so daughter took to sonic to get her something to eat. Pt reported not feeling well after eating. Daughter gave pt 2 glucagon tablets and juice and headed home.When they got back to house around 1530, daughter checked blood sugar and it was 34. Daughter called ambulance. When EMS arrive they checked blood sugar and got 45. IV was placed an pt received an amp of D50 - according to daughter. EMS transported pt to ER and per ER report bs was 25. See ER charting for further actions
[2020-03-22] MEDS ORDERED: PIOG30TA41 PO (02:26)
[2020-03-22] MEDS ORDERED: GLYB5TAB3 PO (02:26)
[2020-03-22] MEDS: IV DEXTROSE 10% 1,000 ML IV SCH ×2 (03:10→15:08)
[2020-03-22] MEDS ORDERED: ALPRAZolam 0.5 MG TABLET PO PRN (11:30)
--- NOTE | 2020-03-22 11:38 | HP ---
ADMIT DATE: CHIEF COMPLAINT AND HISTORY OF PRESENT ILLNESS: This 74-year-old female is well known to me from followup in the office. The patient was busy throughout the day on the day of admission running her daughter to work, going to the grocery store, putting up groceries, got back to her daughter's house later in the day, felt tired, laid down and that is the last she remembers. She states that she has been taking her medications regularly and has them set out. She was eating on the day of admission. She denies feeling bad leading up to this. PAST MEDICAL HISTORY: Remarkable for diabetes, TIA, hyperlipidemia, hypertension. PAST SURGICAL HISTORY: Remarkable for and left shoulder surgery, bilateral knee arthroscopies, bilateral tubal ligation. MEDICATIONS: Brought with the patient, listed on the computer and have been addressed. ALLERGIES: She has no known drug allergies. SOCIAL HISTORY: She is a , never smoker, does not use drugs. Rarely uses alcohol. Has a very supportive family. FAMILY HISTORY: Strongly positive for diabetes. REVIEW OF SYSTEMS: Remarkable for her approaching, feeling like her baseline, not as tired at this point in time, but does not remember a lot of the episodes that brought her to the hospital with profound hypoglycemia. PHYSICAL EXAMINATION: GENERAL: She is a well-developed, well-nourished white female, in no acute distress. VITAL SIGNS: Stable. She is afebrile. Blood pressures are little bit on the high side and home meds will be restarted. HEAD, EYES, EARS, NOSE AND THROAT: Unremarkable. NECK: Supple without adenopathy or thyromegaly. CHEST: Clear to auscultation and percussion. HEART: Regular rate and rhythm without S3, S4 or murmur. ABDOMEN: Soft, nontender, without hepatosplenomegaly or masses. EXTREMITIES: Without cyanosis, clubbing, edema. NEUROLOGIC: She is intact. IMAGING: Chest x-ray on admission is without acute cardiopulmonary process. LABORATORY DATA: Includes a CBC with a hemoglobin of 11.8, normal white count, normal platelet count. Sugars again quite low, as low as 25 since admission. She is currently on D10 to support her sugars. Potassium was 3.4 and renal function is within normal limits. Review of meds reveals glimepiride is the likely culprit, although with no change in renal function and her setting, she is not over taking as this would be extremely unusual for this to happen. IMPRESSION: 1. Profound hypoglycemia. 2. Diabetes. 3. Other problems as listed above. PLAN: The patient has been admitted. D10 will be continued until sugars are high. Her regular medicines, home meds will be restarted other than the diabetic medicines and the patient will be monitored, managed and treated appropriately. CELSA AVENDANO MD DR: AMALIA/lópez JOB#: [id number] / [id number]
[2020-03-22] MEDS: ASPIRIN ENTERIC COATED 81 MG TABLET.DR. PO SCH (11:53)
[2020-03-22] MEDS: buPROPion XL 150 MG TAB.ER.24H. PO SCH (11:54)
--- NOTE | 2020-03-22 17:39 | EKG ---
[facility] [address] [place] [address] Test Date: 2020-03-21 Test Time: 20:52:50 Pat Name: CHRIS BLACKWELL Department: Room: 4 Gender: F Rubber Tile Floor Layer: : 1945 Requested By: ROMINA SENA Order Number: [id number] Reading MD: Yovanny Martell Measurements Intervals [place] Rate: 65 P: 62 DE: 180 QRS: 31 QRSD: 76 T: 19 QT: 440 QTc: 458 Interpretive Statements SINUS RHYTHM NORMAL ECG RI6.01 No previous ECG available for comparison Electronically Signed On 03-26-2020 14:40:12 FORMAL WAITER/WAITRESS by Yovanny Martell
[2020-03-22] MEDS: LISINOPRIL 20 MG TABLET PO SCH (21:16)
[2020-03-22] MEDS: DULoxetine HCL 30 MG CAPSULE.DR PO SCH (21:16)
[2020-03-22] MEDS: ATORVASTATIN CALCIUM 20 MG TABLET PO SCH (21:16)
[2020-03-23 03:40] VITALS: BP 143/65
[2020-03-23 07:00] VITALS: BP 134/57
[2020-03-23] MEDS: IV DEXTROSE 10% 1,000 ML IV SCH (07:08)
[2020-03-23] MEDS: buPROPion XL 150 MG TAB.ER.24H. PO SCH (08:59)
[2020-03-23] MEDS: ASPIRIN ENTERIC COATED 81 MG TABLET.DR. PO SCH (08:59)
[2020-03-23 11:00] VITALS: BP 154/71
[2020-03-23 15:00] VITALS: BP 180/73
--- NOTE | 2020-03-23 18:26 | PN ---
DATE: 03/23/2020 LOCATION: She is in room 674. SUBJECTIVE: This 74-year-old female who remains hospitalized for profound prolonged hypoglycemia. Sugars have been much better over the last 12 hours or so and D10 is still running. I have asked nursing to stop the same and will not restart any diabetic medicines to assure that she is still doing well on the same. Interestingly, she was tested positive for COVID and really has no symptoms or oxygen needs related to the same. OBJECTIVE: VITAL SIGNS: Stable. She is afebrile. O2 sats are good on room air. CHEST: Clear. HEART: Regular. ABDOMEN: Benign. LABORATORY DATA: Sugars are starting to elevate. IMPRESSION: 1. Profound prolonged hypoglycemia. 2. Diabetes. 3. COVID-19 positive without significant symptoms. 4. Hypertension. PLAN: Discontinue D10 observe sugars. We will add back Actos, once her sugars are not going to drop again. The sulfonylurea is likely the culprit for her hypoglycemia, but interestingly, no change in renal function causing the same or decreased intake, which she denied yesterday on admission. CELSA AVENDANO MD DR: AMALIA/lópez JOB#: [id number] / [id number]
[2020-03-23 19:00] VITALS: BP 150/72
[2020-03-23] MEDS: ATORVASTATIN CALCIUM 20 MG TABLET PO SCH (21:12)
[2020-03-23] MEDS: DULoxetine HCL 30 MG CAPSULE.DR PO SCH (21:12)
[2020-03-23] MEDS: LISINOPRIL 20 MG TABLET PO SCH (21:12)
[2020-03-23 23:00] VITALS: BP 154/74
[2020-03-24 03:00] VITALS: BP 129/68
[2020-03-24 07:00] VITALS: BP 154/67
[2020-03-24] MEDS: ASPIRIN ENTERIC COATED 81 MG TABLET.DR. PO SCH (10:10)
[2020-03-24] MEDS: buPROPion XL 150 MG TAB.ER.24H. PO SCH (10:10)
[2020-03-24 11:00] VITALS: BP 154/74
--- NOTE | 2020-03-24 12:39 | PN ---
DATE: 03/24/2020 LOCATION: She is in room 674. SUBJECTIVE: This 74-year-old female remains hospitalized for profound prolonged hypoglycemia. Sugars have been good over the last 24 hours without D10 and I am going to restart her Actos today to see how she does as she is becoming symptomatic from an incidental COVID-19 positivity on admission with now a cough with productive phlegm and aching all over. OBJECTIVE: VITAL SIGNS: Stable. She is afebrile. O2 sats remained good on room air. CHEST: Clear. HEART: Regular. ABDOMEN: Benign. IMPRESSION: 1. Profound prolonged hypoglycemia. 2. Diabetes. 3. COVID-19 positive with cough and myalgias. 4. Hypertension. PLAN: Restart Actos. Observe sugars at least another 24 hours. Hopefully, she does not become more ill from the COVID as the day goes on. CELSA AVENDANO MD DR: AMALIA/lópez JOB#: [id number] / [id number]
[2020-03-24] MEDS: PIOGLITAZONE 15 MG TABLET. PO SCH (13:37)
[2020-03-24 15:00] VITALS: BP 154/55
[2020-03-24 19:00] VITALS: BP 166/64
[2020-03-24] MEDS: DULoxetine HCL 30 MG CAPSULE.DR PO SCH (20:28)
[2020-03-24] MEDS: ATORVASTATIN CALCIUM 20 MG TABLET PO SCH (20:28)
[2020-03-24] MEDS: LISINOPRIL 20 MG TABLET PO SCH (20:31)
[2020-03-24 23:00] VITALS: BP 157/71
[2020-03-25 03:00] VITALS: BP 168/85
[2020-03-25 07:58] VITALS: BP 163/69
[2020-03-25] MEDS: PIOGLITAZONE 15 MG TABLET. PO SCH (08:55)
[2020-03-25] MEDS: buPROPion XL 150 MG TAB.ER.24H. PO SCH (08:55)
[2020-03-25] MEDS: ASPIRIN ENTERIC COATED 81 MG TABLET.DR. PO SCH (08:55)
--- NOTE | 2020-03-25 09:19 | DS ---
DATE OF DISCHARGE: 03/25/2020 PRIMARY DIAGNOSIS: Profound prolonged hypoglycemia. ADDITIONAL DIAGNOSES: Diabetes mellitus, COVID-19 infection, hyperlipidemia, hypertension. CHIEF COMPLAINT AND HISTORY OF PRESENT ILLNESS: This 74-year-old female admitted through the Emergency Room with a prolonged profound hypoglycemia. SUMMARY OF STAY: The patient was admitted, required D50 on multiple occasions and the D10 drip for a couple of days before hypoglycemia resolved. It was felt probably due to her sulfonylurea which was held during the stay and her pioglitazone was restarted the day prior to discharge with no further low sugars, she was COVID-19 positive and initially completely asymptomatic, but by the time of discharge, had a mild headache and a little bit of cough, but was oxygenating well. I have explained to her in detail if she deteriorated in the way that she needed to call back immediately, but felt she was ready for home as did she also. DISPOSITION: The patient is discharged to home. DIET: ADA diet. ACTIVITY: As tolerated. FOLLOWUP: Office in 2 weeks. DISCHARGE MEDICATIONS: Listed on the med rec and have been addressed. They are basically her regular home medicines, short of the sulfonylurea. CELSA AVENDANO MD DR: AMALIA/lópez JOB#: [id number] / [id number]
[2020-03-25 11:59] VITALS: BP 169/85
[2020-03-25 15:57] VITALS: BP 158/69
--- NOTE | 2020-03-25 16:11 | NUR ---
Pt left unit at approx 1605 by wheelchair via private vehicle. Pt's IV removed, no complications noted. Discharge instructions and follow-up discussed with pt, additional questions addressed. COVID information provided to pt.
--- NOTE | 2020-03-25 16:42 | NUR ---
SW following for discharge planning. Spoke with RN and reviewed chart. Pt to discharge home today, self-care with no further SW needs at this time.
--- NOTE | 2020-07-12 15:37 | PDOC1 ---
History & Physical: Date of Service: DOS: 03-22-2020 H&P: PATIENT: CHRIS BLACKWELL ACCOUNT: [id number] : 1945 LOC: [address] [place] [address] AGE: 74 SEX: F STATUS: ADM IN LOCATION: [address] [place] [address] ADMIT DATE: CHIEF COMPLAINT AND HISTORY OF PRESENT ILLNESS: This 74-year-old female is well known to me from followup in the office. The patient was busy throughout the day on the day of admission running her daughter to work, going to the grocery store, putting up groceries, got back to her daughter's house later in the day, felt tired, laid down and that is the last she remembers. She states that she has been taking her medications regularly and has them set out. She was eating on the day of admission. She denies feeling bad leading up to this. PAST MEDICAL HISTORY: Remarkable for diabetes, TIA, hyperlipidemia, hypertension. PAST SURGICAL HISTORY: Remarkable for and left shoulder surgery, bilateral knee arthroscopies, bilateral tubal ligation. MEDICATIONS: Brought with the patient, listed on the computer and have been addressed. ALLERGIES: She has no known drug allergies. SOCIAL HISTORY: She is a , never smoker, does not use drugs. Rarely uses alcohol. Has a very supportive family. FAMILY HISTORY: Strongly positive for diabetes. REVIEW OF SYSTEMS: Remarkable for her approaching, feeling like her baseline, not as tired at this point in time, but does not remember a lot of the episodes that brought her to the hospital with profound hypoglycemia. PHYSICAL EXAMINATION: GENERAL: She is a well-developed, well-nourished white female, in no acute distress. VITAL SIGNS: Stable. She is afebrile. Blood pressures are little bit on the high side and home meds will be restarted. HEAD, EYES, EARS, NOSE AND THROAT: Unremarkable. NECK: Supple without adenopathy or thyromegaly. CHEST: Clear to auscultation and percussion. HEART: Regular rate and rhythm without S3, S4 or murmur. ABDOMEN: Soft, nontender, without hepatosplenomegaly or masses. EXTREMITIES: Without cyanosis, clubbing, edema. NEUROLOGIC: She is intact. IMAGING: Chest x-ray on admission is without acute cardiopulmonary process. LABORATORY DATA: Includes a CBC with a hemoglobin of 11.8, normal white count, normal platelet count. Sugars again quite low, as low as 25 since admission. She is currently on D10 to support her sugars. Potassium was 3.4 and renal function is within normal limits. Review of meds reveals glimepiride is the likely culprit, although with no change in renal function and her setting, she is not over taking as this would be extremely unusual for this to happen. IMPRESSION: 1. Profound hypoglycemia. 2. Diabetes. 3. Other problems as listed above. PLAN: The patient has been admitted. D10 will be continued until sugars are high. Her regular medicines, home meds will be restarted other than the diabetic medicines and the patient will be monitored, managed and treated appropriately. CELSA Woodson. MD ROMANA DR: AMALIA/lópez JOB#: [id number] / [id number] DICTATED BY: CELSA AVENDANO MD 03/22/20 1118 SIGNED BY: CELSA AVENDANO MD 03/23/20 0713 cc: CELSA AVENDANO MD ~[id number] Page of CELSA AVENDANO MD Jul 12, 2020 15:36
== END 2020-03-25 16:14 | disposition home or self-care (01) | DRG 637 ==
LOC: ER 20:35 → 6 SOUTH 21:27
PROVIDERS: ADMIT Family Medicine; ATTEND Family Medicine
DX: E11.649 Type 2 diabetes mellitus with hypoglycemia without coma (principal); U07.1 COVID-19; M79.10 Myalgia, unspecified site; E78.00 Pure hypercholesterolemia, unspecified; E78.5 Hyperlipidemia, unspecified; I10 Essential (primary) hypertension; Z83.3 Family history of diabetes mellitus; F41.9 Anxiety disorder, unspecified; Z86.73 Personal history of transient ischemic attack (TIA), and cerebral infarction without residual deficits; Z98.51 Tubal ligation status; Z79.899 Other long term (current) drug therapy
CPT/HCPCS: 36415; 71045; 80053; 81001; 82962; 83605; 83880; 84484; 85025; 87077; 87086; 87186; 93005; 96360; 99285; J3490; J7121; U0003; G0378

== ENCOUNTER 2021-02-14 11:40 | Emergency (ER) | payer MEDICARE, OTHER ==
[~2021-02-14] VITALS: Ht 144.8 cm; Wt 93.2 kg
[~2021-02-14 11:40] MED LIST changes: -DULO60CA6 PO; +DULO60CA7 PO; +GLYB5TAB3 PO
[2021-02-14] MEDS ORDERED: ONDANSETRON PF 4 MG/2 ML VIAL. IVP ONE (12:45)
[2021-02-14] MEDS ORDERED: fentaNYL PF VIAL 100 MCG/2 ML VIAL IVP ONE (12:45)
--- NOTE | 2021-02-14 12:49 | PHYS DOC ---
Past Medical History Past Medical History: Diabetes-Type II, High Cholesterol, Hypertension, TIA Additional Past Medical Histor: Pt reports she thinks she was told she has had a TIA in the past. (RICKIE HAY APRN) Past Surgical History: No Surgical History Additional Past Surgical Histo: Left shoulder surgery. Bilateral knee arthroscopy. (RICKIE HAY APRN) Smoking Status: Never Smoker Alcohol Use: None Drug Use: None (RICKIE HAY APRN) General Adult EDM: Chief Complaint: ABDOMINAL PAIN HPI: HPI: Patient is a 75-year-old female that presents today with right upper quadrant abdominal pain patient states that 3 days ago she was walking up the stairs to her daughter's house when she fell backwards and fell onto her right side. She states over the last couple days she has had right upper quadrant abdominal pain but is progressively gotten worse. Patient states pain gets worse with inspiration patient states that when she fell she did not lose consciousness (RICKIE HAY APRN) Review of Systems: Review of Systems: Constitutional: Denies fever or chills. [] Eyes: Denies change in visual acuity. [] HENT: Denies nasal congestion or sore throat. [] Respiratory: Denies cough or shortness of breath. [] Cardiovascular: Denies chest pain or edema. [] GI: Right upper quadrant abdominal pain : Denies dysuria. [] Musculoskeletal: Denies back pain or joint pain. [] Integument: Denies rash. [] Neurologic: Denies headache, focal weakness or sensory changes. [] Endocrine: Denies polyuria or polydipsia. [] Lymphatic: Denies swollen glands. [] Psychiatric: Denies depression or anxiety. [] (RICKIE HAY [employer]) Heart Score: C/O Chest Pain: N/A Risk Factors: Risk Factors: DM, Current or recent (<one month) smoker, HTN, HLP, family history of CAD, obesity. Risk Scores: Score 0 - 3: 2.5% MACE over next 6 weeks - Discharge Home Score 4 - 6: 20.3% MACE over next 6 weeks - Admit for Clinical Observation Score 7 - 10: 72.7% MACE over next 6 weeks - Early Invasive Strategies (RICKIE HAY APRN) Current Medications: Current Medications Medications (Trade) Dose Ordered Sig/Anselmo Start Time Stop Time Status Last Admin Dose Admin Fentanyl Citrate (Fentanyl 2ml Vial) 50 mcg 1X ONCE 02/14/21 12:45 02/14/21 12:46 UNV Ondansetron HCl (Zofran) 4 mg 1X ONCE 02/14/21 12:45 02/14/21 12:46 UNV (RICKIE HAY APRN) Allergies: Allergies: Allergies Coded Allergies Type Severity Reaction Last Updated Verified No Known Drug Allergies 02/14/21 No (RICKIE HAY APRN) Physical Exam: PE: Constitutional: Obese female in moderate distress, nontoxic in appearance [] HENT: Normocephalic, atraumatic, bilateral external ears normal, oropharynx moist, no oral exudates, nose normal. [] Eyes: PERRLA, EOMI, conjunctiva normal, no discharge. [] Neck: Normal range of motion, no tenderness, supple, no stridor, no midline tenderness Cardiovascular:Heart rate regular rhythm, no murmur [] Lungs & Thorax: Bilateral breath sounds clear to auscultation, tenderness noted over the right lower chest wall area, pain with inspiration noted Abdomen: Abdomen large, tenderness noted with light palpation over the right upper quadrant, patient is guarded, bowel sounds hypoactive Skin: Warm, dry, no erythema, no rash. [] Back: No midline tenderness or tenderness on her back with palpitation Extremities: No tenderness, no cyanosis, no clubbing, ROM intact, no edema. [] Neurologic: Alert and oriented X 3, normal motor function, normal sensory function, no focal deficits noted. [] Psychologic: Affect normal, judgement normal, mood normal. [] (RICKIE HAY APRN) Current Patient Data: Labs: Laboratory Tests Test 02/14/21 13:05 02/14/21 14:24 White Blood Count 5.6 x10^3/uL Red Blood Count 3.88 x10^6/uL Hemoglobin 12.1 g/dL Hematocrit 36.6 % Mean Corpuscular Volume 95 fL Mean Corpuscular Hemoglobin 31 pg Mean Corpuscular Hemoglobin Concent 33 g/dL Red Cell Distribution Width 14.2 % Platelet Count 238 x10^3/uL Neutrophils (%) (Auto) 71 % Lymphocytes (%) (Auto) 16 % Monocytes (%) (Auto) 8 % Eosinophils (%) (Auto) 4 % Basophils (%) (Auto) 1 % Neutrophils # (Auto) 4.0 x10^3/uL Lymphocytes # (Auto) 0.9 x10^3/uL Monocytes # (Auto) 0.5 x10^3/uL Eosinophils # (Auto) 0.2 x10^3/uL Basophils # (Auto) 0.0 x10^3/uL Sodium Level 137 mmol/L Potassium Level 3.9 mmol/L Chloride Level 102 mmol/L Carbon Dioxide Level 28 mmol/L Anion Gap 7 Blood Urea Nitrogen 17 mg/dL Creatinine 0.8 mg/dL Estimated GFR (Cockcroft-Gault) 70.1 BUN/Creatinine Ratio 21 Glucose Level 121 mg/dL Lactic Acid Level 0.9 mmol/L Calcium Level 8.6 mg/dL Total Bilirubin 0.4 mg/dL Aspartate Amino Transf (AST/SGOT) 19 U/L Alanine Aminotransferase (ALT/SGPT) 25 U/L Alkaline Phosphatase 111 U/L Total Protein 6.8 g/dL Albumin 3.6 g/dL Albumin/Globulin Ratio 1.1 Urine Collection Type Unknown Urine Color Yellow Urine Clarity Clear Urine pH 5.5 Urine Specific [place] >=1.030 Urine Protein Negative mg/dL Urine Glucose (UA) Negative mg/dL Urine Ketones (Stick) Negative mg/dL Urine Blood Trace Urine Nitrite Positive Urine Bilirubin Negative Urine Urobilinogen Dipstick 1.0 mg/dL Urine Leukocyte Esterase Negative Urine RBC 0 /HPF Urine WBC Occ /HPF Urine Squamous Epithelial Cells Mod /LPF Urine Bacteria Many /HPF Urine Mucus Mod /LPF Current Medications Medications (Trade) Dose Ordered Sig/Anslemo Route PRN Reason Start Time Stop Time Status Last Admin Dose Admin Fentanyl Citrate (Fentanyl 2ml Vial) 50 mcg 1X ONCE IVP 02/14/21 12:45 02/14/21 12:47 DC 02/14/21 13:13 Ondansetron HCl (Zofran) 4 mg 1X ONCE IVP 02/14/21 12:45 02/14/21 12:47 DC 02/14/21 13:12 Iohexol (Omnipaque 300 Mg/ml) 75 ml 1X ONCE IV 02/14/21 14:00 02/14/21 14:01 DC 02/14/21 14:05 Info (CONTRAST GIVEN -- Rx MONITORING) 1 each PRN DAILY PRN MC SEE COMMENTS 02/14/21 14:00 02/16/21 13:59 Vital Signs: Vital Signs Date Time Temp Pulse Resp B/P (MAP) Pulse Ox O2 Delivery O2 Flow Rate FiO2 02/14/21 12:15 98.1 86 16 156/74 (101) 96 Room Air 98.1 (RICKIE HAY APRN) EKG: EKG: [] (RICKIE HAY APRN) Radiology/Procedures: Radiology/Procedures: REASON: trauma, abdominal pain PROCEDURE: CT CHEST ABD PELVIS W/CONTRAST EXAMINATION: CT chest, abdomen and pelvis with IV contrast. INDICATION:75 years, Female, trauma, abdominal pain. TECHNIQUE: Axial CT images of the chest, abdomen and pelvis were obtained. Coronal and sagittal reformatted performed. COMPARISON: None. Exposure: One or more of the following individualized dose reduction techniques were utilized for this examination: 1. Automated exposure control 2. Adjustment of the mA and/or kV according to patient size 3. Use of iterative reconstruction technique. FINDINGS: CHEST: Visualized thyroid and esophagus are unremarkable. No intrathoracic lymphadenopathy. Normal cardiac size with no pericardial effusion. Moderate coronary artery atherosclerotic calcifications. Normal caliber abdominal aorta and mesenteric arteries. Bibasilar subsegmental atelectasis, may relate to aspiration. There is a 2.7 mm pulmonary nodule in the left upper lobe. No focal consolidation, pleural effusion or pneumothorax. Central greater patent. ABDOMEN/PELVIS: Liver, gallbladder, biliary ducts, and spleen are unremarkable. Diffuse atrophic pancreatic parenchyma. Nodular thickening of the left adrenal gland without discrete nodule. Right adrenal gland is unremarkable. No hydronephrosis in either kidney. No bowel obstruction or wall thickening. Colonic diverticulosis without acute diverticulitis. Normal appendix. No abdominopelvic lymphadenopathy by size criteria. Mild aortoiliac atherosclerotic calcifications without narrowing or dilation. No pneumoperitoneum or ascites. Underdistended urinary bladder which limits evaluation. Unremarkable uterus. No suspicious pelvic masses. MUSCULOSKELETAL: Subcutaneous fat stranding with soft tissue nodularities in the lateral right gluteal region. No acute osseous process or suspicious lesion. Severe multilevel degenerative changes in thoracolumbar spine. Small fat-containing ventral hernia. IMPRESSION: 1. No acute traumatic injury to the chest, abdomen or pelvis. 2. Subcutaneous fat stranding with soft tissue nodularities in the lateral right gluteal region. Correlate for soft tissue injury. 3. Bibasilar subsegmental atelectasis, may relate to aspiration. 4. A 2.7 mm pulmonary nodule in the left upper lobe. High-risk patient, consider [address] chest. Electronically signed by: Pao Shell MD (02/14/2021 2:32 PM) [facility] (RICKIE HAY APRN) Course & Med Decision Making: Course & Med Decision Making Pertinent Labs and Imaging studies reviewed. (See chart for details) 1515 reassessment of patient patient states pain is improved but not totally gone continues to have right upper quadrant pain. Patient sats are 99% no tachypnea noted. Patient informed her that her CT scan results did not show any fractures or bleeding in the abdomen or chest, believe this could be costochondritis or a pleurisy type issue. We will send patient home with pain medications and muscle relaxant medications. Patient states she has taken Flexeril in the past and has done okay with it. We will have patient follow-up with Dr. Murillo on Wednesday, instructed patient to return to the emergency department for increased work of breathing, increased chest pain, development of a fever, or pain changes in any way shape or form. Patient verbalizes understanding of this plan of care and agrees with the plan of care to go home (RICKIE HAY APRN) Dragon Disclaimer: Dragon Disclaimer: This electronic medical record was generated, in whole or in part, using a voice recognition dictation system. (RICKIE HAY APRN) Departure Departure Impression: Primary Impression: Acute costochondritis Additional Impression: Contusion, chest wall Qualified Codes: S20.211A - Contusion of right front wall of thorax, initial encounter Disposition: HOME / SELF CARE / HOMELESS Condition: STABLE Referrals: CELSA AVENDANO MD (PCP) Patient Instructions: Chest Contusion, [id number], Costochondritis Additional Instructions: Ice to the affected area 20 minutes on 3-4 times daily over the next 2 days Hydrocodone take 1 tablet every 6 hours as needed for severe pain Ibuprofen as labeled directed as needed for mild to moderate pain Flexeril 1 tablet every 8 hours as needed for plain you please use with caution may cause dizziness or lightheadedness Return to the emergency department for increased work of breathing or shortness of air, increased chest pain, feeling dizzy or lightheadedness or development of a fever. Follow-up with Dr. Murillo next week for further management. Scripts Hydrocodone Bit/Acetaminophen (HYDROCODONE-APAP 5-325 ) 1 Tab Tablet 1 TAB PO PRN Q6HRS PRN for PAIN, #14 TAB 0 Refills Prov: RICKIE HAY APRN 02/14/21 Cyclobenzaprine Hcl (CYCLOBENZAPRINE HCL) 10 Mg Tablet 10 MG PO TID PRN PRN for CHEST PAIN, #14 TAB Prov: RICKIE HAY APRN 02/14/21 Attending Signature Attending Signature I have reviewed the PA/ANODE REBUILDER's note and plan of care. I was available for consultation as needed during the patient's visit in the emergency department. I agree with the clinical impression, plan, and disposition. (POLLY SAMUELS DO) RICKIE HAY APRN Feb 14, 2021 12:49 POLLY SAMUELS DO Feb 15, 2021 06:37
[2021-02-14 13:17] LABS: BASO % 1 % (0-3); EOS # 0.2 x10^3/uL (0.0-0.7); EOS % 4 % (0-3); HEMATOCRIT 36.6 % (36.0-47.0); HEMOGLOBIN 12.1 g/dL (12.0-15.5); LYMPH # 0.9 x10^3/uL (1.0-4.8); LYMPH % 16 % (24-48); MEAN CORPUSCULAR HEMOGLOBIN 31 pg (25-35); MEAN CORPUSCULAR HGB CONC 33 g/dL (31-37); MEAN CORPUSCULAR VOLUME 95 fL (79-100); MONO # 0.5 x10^3/uL (0.0-1.1); MONO % 8 % (0-9); NEUT % 71 % (31-73); PLATELET COUNT 238 x10^3/uL (140-400); RED BLOOD COUNT 3.88 x10^6/uL (3.50-5.40); RED CELL DISTRIBUTION WIDTH 14.2 % (11.5-14.5); WHITE BLOOD COUNT 5.6 x10^3/uL (4.0-11.0)
[2021-02-14 13:37] LABS: CALCIUM 8.6 mg/dL (8.5-10.1); CREATININE 0.8 mg/dL (0.6-1.0); GFR 70.1; POTASSIUM 3.9 mmol/L (3.5-5.1)
[2021-02-14 13:42] LABS: ALBUMIN 3.6 g/dL (3.4-5.0); ALBUMIN/GLOBULIN RATIO 1.1 (1.0-1.7); TOTAL BILIRUBIN 0.4 mg/dL (0.2-1.0); TOTAL PROTEIN 6.8 g/dL (6.4-8.2)
[2021-02-14] MEDS ORDERED: IOHEXOL 300 MG/ML 100ML VIAL. IV ONE (14:00)
[2021-02-14] MEDS ORDERED: CONTRAST GIVEN. MC PRN (14:00)
--- NOTE | 2021-02-14 14:35 | RAD ---
EXAMINATION: CT chest, abdomen and pelvis with IV contrast. INDICATION:75 years, Female, trauma, abdominal pain. TECHNIQUE: Axial CT images of the chest, abdomen and pelvis were obtained. Coronal and sagittal refor matted performed. COMPARISON: None. Exposure: One or more of the following individualized dose reduction techniques were utilized for thi s examination: 1. Automated exposure control 2. Adjustment of the mA and/or kV according to patient size 3. Use of iterative reconstruction technique. FINDINGS: CHEST: Visualized thyroid and esophagus are unremarkable. No intrathoracic lymphadenopathy. Normal cardiac s ize with no pericardial effusion. Moderate coronary artery atherosclerotic calcifications. Normal karina iber abdominal aorta and mesenteric arteries. Bibasilar subsegmental atelectasis, may relate to aspir ation. There is a 2.7 mm pulmonary nodule in the left upper lobe. No focal consolidation, pleural eff usion or pneumothorax. Central greater patent. ABDOMEN/PELVIS: Liver, gallbladder, biliary ducts, and spleen are unremarkable. Diffuse atrophic pancreatic parenchym a. Nodular thickening of the left adrenal gland without discrete nodule. Right adrenal gland is unrem arkable. No hydronephrosis in either kidney. No bowel obstruction or wall thickening. Colonic diverti culosis without acute diverticulitis. Normal appendix. No abdominopelvic lymphadenopathy by size crit eria. Mild aortoiliac atherosclerotic calcifications without narrowing or dilation. No pneumoperitone um or ascites. Underdistended urinary bladder which limits evaluation. Unremarkable uterus. No suspic ious pelvic masses. MUSCULOSKELETAL: Subcutaneous fat stranding with soft tissue nodularities in the lateral right gluteal region. No acut e osseous process or suspicious lesion. Severe multilevel degenerative changes in thoracolumbar spine . Small fat-containing ventral hernia. IMPRESSION: 1. No acute traumatic injury to the chest, abdomen or pelvis. 2. Subcutaneous fat stranding with soft tissue nodularities in the lateral right gluteal region. Cor relate for soft tissue injury. 3. Bibasilar subsegmental atelectasis, may relate to aspiration. 4. A 2.7 mm pulmonary nodule in the left upper lobe. High-risk patient, consider [address] c hest. Electronically signed by: Pao Shell MD (02/14/2021 2:32 PM) [facility]
[2021-02-14 14:38] LABS: BILIRUBIN,URINE NEGATIVE (NEG); CLARITY,URINE CLEAR; COLOR,URINE YELLOW; NITRITE,URINE POSITIVE (NEG); PH,URINE 5.5 (<5.0-8.0); PROTEIN,URINE NEGATIVE (NEG-TRACE)
[2021-02-14 14:50] LABS: BACTERIA,URINE MANY /HPF (0-FEW)
[2021-02-14 14:51] LABS: RBC,URINE 0 /HPF (0-2); WBC,URINE OCC /HPF (0-4)
[2021-02-14] MEDS ORDERED: HYDR-2761 PO (15:27)
[2021-02-14] MEDS ORDERED: CYCL10TA19 PO (15:27)
[2021-02-14 15:42] VITALS: BP 122/64
--- NOTE | 2021-02-17 19:01 | VNOTE ---
CALL BACK NOTE CALL BACK Microbiology 02/14/21 Urine Culture - Final, Complete 02/14/21 Antimicrobic Susceptibility - Final, Complete Positive urine culture, talked to patient, she states she is in a lot of pain she is coming back to the ED REAGAN NELSON APRN Feb 17, 2021 19:01
== END 2021-02-14 15:43 | disposition home or self-care (01) ==
LOC: ER 11:46
DX: S20.211A Contusion of right front wall of thorax, initial encounter (principal); M94.0 Chondrocostal junction syndrome [Tietze]; E11.9 Type 2 diabetes mellitus without complications; E78.00 Pure hypercholesterolemia, unspecified; I10 Essential (primary) hypertension; Z86.73 Personal history of transient ischemic attack (TIA), and cerebral infarction without residual deficits; W10.8XXA Fall (on) (from) other stairs and steps, initial encounter; Y93.01 Activity, walking, marching and hiking; Y92.89 Other specified places as the place of occurrence of the external cause; Y99.8 Other external cause status
CPT/HCPCS: 36415; 71260; 74177; 80053; 81001; 83605; 85025; 87086; 96374; 96375; 99285; J2405; J3010; Q9967

== ENCOUNTER 2021-02-17 20:04 | Emergency (ER) | payer MEDICARE, OTHER ==
[~2021-02-17] VITALS: Ht 144.8 cm; Wt 86.0 kg
[~2021-02-17 20:04] MED LIST changes: +CYCL10TA19 PO; +HYDR-2761 PO
--- NOTE | 2021-02-17 20:37 | PHYS DOC ---
Past Medical History Past Medical History: Diabetes-Type II, High Cholesterol, Hypertension, TIA Additional Past Medical Histor: Pt reports she thinks she was told she has had a TIA in the past. Past Surgical History: No Surgical History Additional Past Surgical Histo: Left shoulder surgery. Bilateral knee arthroscopy. Smoking Status: Never Smoker Alcohol Use: None Drug Use: None General Adult HPI: HPI: Patient is a 75 year old female presents with the chief complaint of hypertension, hyperlipidemia, and diabetes presents for re-evaluation of abdomi nal pain related to a fall. Patient fell on wednesday. She was evaluated in the ER and had CT Chest/Abd/Pev which was read by the radiologist as negative for acute fracture. Patient was prescribed norco-- she states pain is controlled when she takes the medications but states she only takes the medication upon awaking and prior to going to bed. Past chart and radiology reviewed. Review of Systems: Review of Systems: Constitutional: Denies fever or chills. [] Eyes: Denies change in visual acuity. [] HENT: Denies nasal congestion or sore throat. [] Respiratory: Denies cough or shortness of breath. [] Cardiovascular: Denies chest pain or edema. [] GI: Positive abdominal pain, nausea, vomiting, bloody stools or diarrhea. [] : Denies dysuria. [] Musculoskeletal: Denies back pain or joint pain. [Positive chest wall pain] Integument: Denies rash. [] Neurologic: Denies headache, focal weakness or sensory changes. [] Endocrine: Denies polyuria or polydipsia. [] Lymphatic: Denies swollen glands. [] Psychiatric: Denies depression or anxiety. [] Heart Score: C/O Chest Pain: N/A Risk Factors: Risk Factors: DM, Current or recent (<one month) smoker, HTN, HLP, family history of CAD, obesity. Risk Scores: Score 0 - 3: 2.5% MACE over next 6 weeks - Discharge Home Score 4 - 6: 20.3% MACE over next 6 weeks - Admit for Clinical Observation Score 7 - 10: 72.7% MACE over next 6 weeks - Early Invasive Strategies Allergies: Allergies: Allergies Coded Allergies Type Severity Reaction Last Updated Verified No Known Drug Allergies 02/14/21 No Physical Exam: PE: General: alert, no acute distress. Skin: warm, dry and intact, no erythema, no rash. HENT: bilateral external ears normal, oropharynx moist, nose normal. Head:: Normocephalic, atraumatic. Neck: Trachea midline. Eyes: EOMI, Normal conjunctiva, No drainage CARDIOVASCULAR: Regular rate and rhythm RESPIRATORY: No respiratory distress Back: Full range of motion. MUSCULOSKELETAL: Full range of motion of bilateral upper and lower extremities. GASTROINTESTINAL: Abdomen soft without rebound or guarding. NEUROLOGICAL: Alert and noted to person, place and time. No neurological deficits observed Psychiatric: Cooperative. Normal judgment Pain is located in the epigastric right rib region. No crepitus no palpable deformities of the ribs EKG: EKG: [] Radiology/Procedures: Radiology/Procedures: [] Course & Med Decision Making: Course & Med Decision Making Pertinent Labs and Imaging studies reviewed. (See chart for details) [] CT imaging reviewed no acute traumatic injury. Basic labs drawn no acute abnormalities. Patient pain was treated with fentanyl. Patient refilled her hydrocodone. Advised to take hydrocodone every 4-6 hours as needed for pain instead of 1 tablet in the morning and 1 tablet at bedtime. Patient instructed to follow-up with her primary care physician. Bucky Disclaimer: Bucky Disclaimer: This electronic medical record was generated, in whole or in part, using a voice recognition dictation system. Departure Departure Impression: Primary Impression: Fall Additional Impression: Intractable pain Disposition: 01 HOME / SELF CARE / HOMELESS Condition: STABLE Referrals: CELSA AVENDANO MD (PCP) Patient Instructions: Chest Wall Pain, Fall Prevention and Home Safety Scripts Hydrocodone/Acetaminophen (Hydrocodone-Acetamin 5-325 mg) 1 Each Tablet 1 EACH PO Q4-6HRS, #20 TAB Prov: ASHLEY DURÁN DO 02/17/21 ASHLEY DURÁN DO Feb 17, 2021 20:37
[2021-02-17] MEDS ORDERED: fentaNYL PF VIAL 100 MCG/2 ML VIAL IM ONE (21:00)
[2021-02-17 21:14] LABS: BASO # 0.1 x10^3/uL (0.0-0.2); BASO % 1 % (0-3); EOS # 0.3 x10^3/uL (0.0-0.7); EOS % 6 % (0-3); HEMATOCRIT 37.5 % (36.0-47.0); HEMOGLOBIN 12.5 g/dL (12.0-15.5); LYMPH # 0.9 x10^3/uL (1.0-4.8); LYMPH % 17 % (24-48); MEAN CORPUSCULAR HEMOGLOBIN 32 pg (25-35); MEAN CORPUSCULAR HGB CONC 33 g/dL (31-37); MEAN CORPUSCULAR VOLUME 95 fL (79-100); MONO # 0.5 x10^3/uL (0.0-1.1); MONO % 9 % (0-9); NEUT # 3.6 x10^3/uL (1.8-7.7); NEUT % 67 % (31-73); PLATELET COUNT 272 x10^3/uL (140-400); RED BLOOD COUNT 3.95 x10^6/uL (3.50-5.40); RED CELL DISTRIBUTION WIDTH 13.7 % (11.5-14.5); WHITE BLOOD COUNT 5.4 x10^3/uL (4.0-11.0)
[2021-02-17 21:32] LABS: CALCIUM 8.5 mg/dL (8.5-10.1); CREATININE 1.1 mg/dL (0.6-1.0); GFR 48.6; POTASSIUM 3.9 mmol/L (3.5-5.1)
[2021-02-17 21:37] LABS: ALBUMIN 3.4 g/dL (3.4-5.0); TOTAL BILIRUBIN 0.6 mg/dL (0.2-1.0); TOTAL PROTEIN 6.8 g/dL (6.4-8.2)
[2021-02-17] MEDS ORDERED: fentaNYL PF VIAL 100 MCG/2 ML VIAL IVP ONE (21:45)
[2021-02-17] MEDS ORDERED: HYDR-2759 PO (21:52)
[2021-02-17 22:10] VITALS: BP 129/62
== END 2021-02-17 21:45 | disposition home or self-care (01) ==
LOC: ER 20:04
DX: R10.9 Unspecified abdominal pain (principal); G89.11 Acute pain due to trauma; E11.9 Type 2 diabetes mellitus without complications; E78.00 Pure hypercholesterolemia, unspecified; I10 Essential (primary) hypertension; Z86.73 Personal history of transient ischemic attack (TIA), and cerebral infarction without residual deficits; W18.39XA Other fall on same level, initial encounter; Y93.89 Activity, other specified; Y99.8 Other external cause status; Y92.89 Other specified places as the place of occurrence of the external cause
CPT/HCPCS: 36415; 80053; 84484; 85025; 96374; 99283; J3010